=== PATIENT | male | born 1960 | race Caucasian/White ===

== ENCOUNTER 2019-07-04 17:20 | Emergency (ER) | payer SELFPAY ==
[2019-07-04 17:35] VITALS: BP 149/101
--- NOTE | 2019-07-04 18:13 | ED ---
Abdominal Pain/Male - HPI Summary HPI Summary: 58 yr old male with the complaint of right upper quadrant abdominal pain. He first noticed this about a month ago after he would eat. Over the past three days. The pain is worse after eating; he describes this as a dull ache that stays longer after eating now. No NV. He notices that his blood pressure has steadily gotten higher the past few days. Denies SOB, CP. Denies back pain. - History of Current Complaint Chief Complaint: UCAbdominalPain Stated Complaint: ABDOMINAL PAIN Time Seen by Provider: 07/04/19 17:51 Pain Intensity: 0 - Allergies/Home Medications Allergies/Adverse Reactions: Allergies Allergy/AdvReac Type Severity Reaction Status Date / Time Pork/Porcine Containing Allergy Severe wheeze Verified 07/04/19 17:36 Products chocolate flavor Allergy wheeze Verified 07/04/19 17:36 BRAZIL NUTS Allergy Intermediate See Comment Uncoded 07/04/19 17:36 NUTS Allergy Intermediate See Comment Uncoded 07/04/19 17:36 PMH/Surg Hx/FS Hx/Imm Hx Respiratory History: Reports: Other Respiratory Problems/Disorders - DEVIATED SEPTUM,SINUSITIS Sensory History: Reports: Hx Contacts or Glasses Denies: Hx Hearing Aid Opthamlomology History: Reports: Hx Contacts or Glasses - Surgical History Surgery Procedure, Year, and Place: SEPTIC ARTHRITIS LEFT HIP AT 9 YEARS OLD, INFECTION [place] SURGERY OPENED JOINT TO DRAIN Hx Anesthesia Reactions: No Infectious Disease History: No Infectious Disease History: Denies: Traveled Outside the [place] in Last 30 Days - Family History Known Family History: Positive: None - Social History Occupation: Retired Alcohol Use: None Substance Use Type: Reports: None Smoking Status (MU): Never Smoked Tobacco Review of Systems Constitutional: Negative Positive: Abdominal Pain All Other Systems Reviewed And Are Negative: Yes Physical Exam Triage Information Reviewed: Yes Vital Signs On Initial Exam: Initial Vitals Temp Pulse Resp BP Pulse Ox 99 F 76 16 149/101 100 07/04/19 17:25 07/04/19 17:25 07/04/19 17:25 07/04/19 17:25 07/04/19 17:25 Vital Signs Reviewed: Yes Appearance: Positive: Well-Appearing, No Pain Distress Skin: Positive: Warm, Skin Color Reflects Adequate Perfusion Head/Face: Positive: Normal Head/Face Inspection Eyes: Positive: EOMI, TONE ENT: Positive: Normal ENT inspection Neck: Positive: Nontender Respiratory/Lung Sounds: Positive: Clear to Auscultation, Breath Sounds Present Cardiovascular: Positive: RRR. Negative: Murmur Abdomen Description: Positive: Nontender, Soft. Negative: Distended Musculoskeletal: Positive: Strength/ROM Intact Neurological: Positive: Sensory/Motor Intact, Alert, Oriented to Person Place, Time, CN Intact II-III Psychiatric: Positive: Normal Diagnostics - Vital Signs Vital Signs Temp Pulse Resp BP Pulse Ox 07/04/19 17:25 99 F 76 16 149/101 100 - Laboratory Lab Statement: Any lab studies that have been ordered have been reviewed, and results considered in the medical decision making process. Abdominal Pain Male Course/Dx - Course Course Of Treatment: 58 yr old with hypertension and right upper abdominal pain. He signed out AMA refusing to go to the ER for further work up. - Diagnoses Provider Diagnoses: Right upper quadrant abdominal pain, Hypertension Discharge - Sign-Out/Discharge Documenting (check all that apply): Patient Departure All imaging exams completed and their final reports reviewed: No Studies - Discharge Plan Condition: Good Disposition: AGAINST MEDICAL ADVICE Referrals: No Primary Care Phys,NOPCP [Primary Care Provider] - - Billing Disposition and Condition Condition: GOOD Disposition: Against Medical Advice
== END 2019-07-04 18:15 | disposition left against medical advice (07) ==
LOC: UCEAST 17:20
DX: R10.11 Right upper quadrant pain (principal); I10 Essential (primary) hypertension
CPT/HCPCS: 99202; G0463

== ENCOUNTER 2019-12-29 19:53 | Emergency (ER) | payer BC ==
[2019-12-29 21:53] LABS: ABS Eosinophils 0.4 10^3/ul (0-0.6); ABS Lymphocytes 1.4 10^3/ul (1.0-4.8); ABS Monocytes 0.6 10^3/ul (0-0.8); ABS Neutrophils 7.4 10^3/ul (1.5-7.7); Eosinophil % 3.7 %; Hematocrit 44 % (42-52); Hemoglobin 15.5 g/dL (14.0-18.0); Lymphocyte % 14.6 %; Mean Corpuscular HGB Conc 35 g/dL (31-36); Mean Corpuscular Hemoglobin 31 pg (27-31); Mean Corpuscular Volume 88 fL (80-94); Mean Platelet Volume 8.3 fL (7.4-10.4); Platelet Count 195 10^3/uL (150-450); Red Blood Count 5.01 10^6 /uL (4.18-5.48); Red Cell Distribution Width 14 % (10-15); White Blood Count 9.9 10^3/uL (3.5-10.8)
[2019-12-29 21:56] LABS: INR 1.02 (0.82-1.09)
[2019-12-29 22:05] LABS: Albumin 4.5 g/dL (3.2-5.2); Albumin/Globulin Ratio 1.7 (1-3); BUN/Creatinine Ratio 25.5 (8-20); Calcium 9.6 mg/dL (8.6-10.3); EGFR African American 94.4 (>60); Globulin 2.7 g/dL (2-4); Potassium 3.8 mmol/L (3.5-5.0); Total Bilirubin 1.2 mg/dL (0.2-1.0); Total Protein 7.2 g/dL (6.4-8.9)
[2019-12-29 22:17] VITALS: BP 132/84
--- NOTE | 2019-12-29 22:35 | ED ---
Complex/Multi-Sys Presentation - HPI Summary HPI Summary: Patient is a 59 y/o M presenting to [facility] with complaints of left shoulder pain , right upper molar pain, blurred vision, elevated BP and rhinorrhea. He states that he was sitting at home earlier today watching golf when he had onset of blurred vision at the center of his vision. No black spots noted. He states that this episode lasted around 5 minutes and then resolved. BP at home was measured to be 175/98. No previous similar episodes noted. Patient notes that he had an episode of right upper molar pain yesterday and nasal discharge for the past week. He also reports that he had an intermittent episode of left shoulder pain around 3-4 weeks ago. No chest pain noted, but the patient is concerned for "silent heart attack". Patient is on 50 mg Losartan for HTN but no Hx of [place], HLD or diabetes noted. He notes that he exercises regularly and believes that this was his first EKG. No changes in baseline activity noted. No FMHx of cardiac disease reported. Home medications and allergies are reviewed. - History Of Current Complaint Chief Complaint: EDHypertension Time Seen by Provider: 12/29/19 21:28 Hx Obtained From: Patient Onset/Duration: Resolved Timing: Intermittent, Lasting: Location: Pain At: - left shoulder, right upper molar Associated Signs And Symptoms: Positive: Other - positive - left shoulder pain, right upper molar pain, blurred vision, elevated BP and rhinorrhea. Negative: Chest Pain - Allergies/Home Medications Allergies/Adverse Reactions: Allergies Allergy/AdvReac Type Severity Reaction Status Date / Time Pork/Porcine Containing Allergy Severe wheeze Verified 12/29/19 22:00 Products chocolate flavor Allergy wheeze Verified 12/29/19 22:00 BRAZIL NUTS Allergy Intermediate See Comment Uncoded 12/29/19 22:00 NUTS Allergy Intermediate See Comment Uncoded 12/29/19 22:00 Home Medications: Home Medications Losartan TAB* [Cozaar TAB*] 50 mg PO DAILY 12/29/19 [History Confirmed 12/29/19] PMH/Surg Hx/FS Hx/Imm Hx Respiratory History: Reports: Other Respiratory Problems/Disorders - DEVIATED SEPTUM,SINUSITIS Sensory History: Reports: Hx Contacts or Glasses Denies: Hx Hearing Aid Opthamlomology History: Reports: Hx Contacts or Glasses - Surgical History Surgery Procedure, Year, and Place: SEPTIC ARTHRITIS LEFT HIP AT 9 YEARS OLD, INFECTION [place] SURGERY OPENED JOINT TO DRAIN Hx Anesthesia Reactions: No Infectious Disease History: No Infectious Disease History: Denies: Traveled Outside the [place] in Last 30 Days - Family History Known Family History: Negative: Cardiac Disease - Social History Alcohol Use: None Substance Use Type: Reports: None Smoking Status (MU): Never Smoked Tobacco Review of Systems Positive: Blurred Vision Positive: Dental Pain, Nasal Discharge Cardiovascular: Other - positive - elevated BP Negative: Chest Pain Musculoskeletal: Other - positive - left shoulder pain All Other Systems Reviewed And Are Negative: Yes Physical Exam - Summary Physical Exam Summary: Appearance: Well-appearing, Well-nourished, lying in bed comfortably Skin: Warm, dry, no obvious rash Eyes: sclera anicteric, no conjunctival pallor ENT: mucous membranes moist, pharynx appears normal Neck: Supple, nontender Respiratory: Clear to auscultation, no signs of respiratory distress Cardiovascular: Normal S1, S2. No murmurs. Normal distal pulses in tibial and radial bilaterally. Abdomen: Soft, nontender, normal active bowel sounds present Musculoskeletal: Normal, Strength/ROM Intact Neurological: A&Ox3, awake and alert, mentation is normal, speech is fluent and appropriate Psychiatric: affect is normal, does not appear anxious or depressed Triage Information Reviewed: Yes Vital Signs On Initial Exam: Initial Vitals Temp Pulse Resp BP Pulse Ox 98.2 F 82 15 143/87 100 12/29/19 20:06 12/29/19 20:06 12/29/19 20:06 12/29/19 20:06 12/29/19 20:06 Vital Signs Reviewed: Yes Procedures - Sedation Patient Received Moderate/Deep Sedation with Procedure: No Diagnostics - Vital Signs Vital Signs Temp Pulse Resp BP Pulse Ox 12/29/19 22:16 98.6 F 69 12 132/84 95 12/29/19 22:02 98.7 F 66 12 124/86 95 12/29/19 20:06 98.2 F 82 15 143/87 100 - Laboratory Lab Results: Lab Results 12/29/19 12/29/19 12/29/19 Range/Units 21:41 21:41 21:41 WBC 9.9 (3.5-10.8) 10^3/uL RBC 5.01 (4.18-5.48) 10^6 /uL Hgb 15.5 (14.0-18.0) g/dL Hct 44 (42-52) % MCV 88 (80-94) fL MCH 31 (27-31) pg MCHC 35 (31-36) g/dL RDW 14 (10-15) % Plt Count 195 (150-450) 10^3/uL MPV 8.3 (7.4-10.4) fL Neut % (Auto) 75.1 % Lymph % (Auto) 14.6 % [place] % (Auto) 6.1 % Eos % (Auto) 3.7 % Baso % (Auto) 0.5 % Absolute Neuts (auto) 7.4 (1.5-7.7) 10^3/ul Absolute Lymphs (auto) 1.4 (1.0-4.8) 10^3/ul Absolute Monos (auto) 0.6 (0-0.8) 10^3/ul Absolute Eos (auto) 0.4 (0-0.6) 10^3/ul Absolute Basos (auto) 0.0 (0-0.2) 10^3/ul Absolute Nucleated RBC 0.0 10^3/ul Nucleated RBC % 0.0 INR (Anticoag Therapy) 1.02 (0.82-1.09) Sodium 135 (135-145) mmol/L Potassium 3.8 (3.5-5.0) mmol/L Chloride 102 (101-111) mmol/L Carbon Dioxide 23 (22-32) mmol/L Anion Gap 10 (2-11) mmol/L BUN 25 H (6-24) mg/dL Creatinine 0.98 (0.67-1.17) mg/dL Est GFR ( Amer) 94.4 (>60) Est GFR (Non-Af Amer) 78.0 (>60) BUN/Creatinine Ratio 25.5 H (8-20) Glucose 110 H (70-100) mg/dL Calcium 9.6 (8.6-10.3) mg/dL Total Bilirubin 1.20 H (0.2-1.0) mg/dL AST 21 (13-39) U/L ALT 17 (7-52) U/L Alkaline Phosphatase 42 (34-104) U/L Troponin I 0.00 (<0.03) ng/mL Total Protein 7.2 (6.4-8.9) g/dL Albumin 4.5 (3.2-5.2) g/dL Globulin 2.7 (2-4) g/dL Albumin/Globulin Ratio 1.7 (1-3) Result Diagrams: 12/29/19 21:41 12/29/19 21:41 Lab Statement: Any lab studies that have been ordered have been reviewed, and results considered in the medical decision making process. - EKG 1954 Summary of EKG Findings: EKG showed NSR at 74 BPM, P waves, QRS complex, and T waves are within normal limits, T waves and intervals are normal, no ischemic changes, no STEMI. This is a normal EKG. ED physician has reviewed and interpreted this EKG. Complex Multi-Symp Course/Dx Course Of Treatment: Patient is a 59 y/o M presenting to [facility] with complaints of left shoulder pain, right upper molar pain, blurred vision, elevated BP and rhinorrhea. He states that he was sitting at home earlier today watching golf when he had onset of blurred vision at the center of his vision. No black spots noted. He states that this episode lasted around 5 minutes and then resolved. BP at home was measured to be 175/98. No previous similar episodes noted. Patient notes that he had an episode of right upper molar pain yesterday and nasal discharge for the past week. He also reports that he had an intermittent episode of left shoulder pain around 3-4 weeks ago. No chest pain noted, but the patient is concerned for "silent heart attack". Patient is on 50 mg Losartan for HTN but no Hx of [place], HLD or diabetes noted. He notes that he exercises regularly and believes that this was his first EKG. No changes in baseline activity noted. No FMHx of cardiac disease reported. Physical exam is unremarkable. EKG showed NSR at 74 BPM, P waves, QRS complex, and T waves are within normal limits, T waves and intervals are normal, no ischemic changes, no STEMI. This is a normal EKG. Bloodwork was obtained and within normal limits with exception of BUN 25, BUN/creatinine ratio of 25.5, glucose 110, total bilirubin 1.2. Trop was negative. 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 - Diagnoses Provider Diagnoses: Transient visual disturbance Discharge ED - Sign-Out/Discharge Documenting (check all that apply): Patient Departure - discharge - Discharge Plan Condition: Stable Disposition: HOME Patient Education Materials: Blurred Vision (ED) Referrals: Santi Anderson MD [Medical Doctor] - Vimal Colmenares MD [Medical Doctor] - Additional Instructions: I'm not sure what caused your transient visual disturbance, but I would recommend having an eye exam this week to go over this and see if it represents a potential problem. If you have your own eye doctor that's fine, I have also given you contact info for a couple of eye specialists in [place]. The screening tests we ran looking for signs of heart trouble came back negative , so I don't think you need to worry about that. - Billing Disposition and Condition Condition: STABLE Disposition: Home - Attestation Statements Document Initiated by Theo: Yes Documenting Scribe: JUAN JOSÉ DIANE Provider For Whom Theo is Documenting (Include Credential): YULIYA BORRERO MD Scribe Attestation: I, JUAN JOSÉ DIANE, scribed for YULIYA BORRERO MD on 01/02/20 at 1840. Scribe Documentation Reviewed: Yes Provider Attestation: The documentation as recorded by the JUAN JOSÉ gage accurately reflects the service I personally performed and the decisions made by me, YULIYA BORRERO MD Status of Scribe Document: Viewed
== END 2019-12-29 22:16 | disposition home or self-care (01) ==
LOC: ED 19:53
DX: H53.8 Other visual disturbances (principal); M25.512 Pain in left shoulder; R03.0 Elevated blood-pressure reading, without diagnosis of hypertension; K08.89 Other specified disorders of teeth and supporting structures; J34.89 Other specified disorders of nose and nasal sinuses; Z79.811 Long term (current) use of aromatase inhibitors
CPT/HCPCS: 36415; 80053; 84484; 85025; 85610; 93005; 99282

== ENCOUNTER 2020-03-10 16:06 | Emergency (ER) | payer BC ==
--- NOTE | 2020-03-10 16:54 | ED ---
Laceration/Wound HPI - HPI Summary HPI Summary: 59 y/o M presenting to [facility] c/o right upper lip lacerations, right lower lip abrasion, 2/10 lip and dental pain s/p bracket from at home weightlifting equipment breaking and hitting his face. He states he broke 2 teeth. Medications reviewed. Takes vitamin E and mild anticoagulant. Allergies noted. Tetanus updated about 2 or 3 years ago. - History of Current Complaint Stated Complaint: MOUTH INJURY PER Time Seen by Provider: 03/10/20 16:50 Hx Obtained From: Patient Onset/Duration: Lasting Minutes, Still Present Aggravating: Nothing Alleviating: Nothing Timing: Constant Current Severity: Mild Pain Intensity: 2 Pain Scale Used: 0-10 Numeric - Allergy/Home Medications Allergies/Adverse Reactions: Allergies Allergy/AdvReac Type Severity Reaction Status Date / Time Pork/Porcine Containing Allergy Severe wheeze Verified 12/29/19 22:00 Products chocolate flavor Allergy wheeze Verified 12/29/19 22:00 BRAZIL NUTS Allergy Intermediate See Comment Uncoded 12/29/19 22:00 NUTS Allergy Intermediate See Comment Uncoded 12/29/19 22:00 Home Medications: Home Medications Losartan TAB* [Cozaar TAB*] 50 mg PO DAILY 12/29/19 [History Confirmed 03/10/20] Chlorhexidine MW 0.12% 473ML* [Peridex Mouth Wash 0.12%*] 15 ml SWISH SPIT BID 10 Days #1 btl 03/10/20 [Rx] Melatonin 10 mg PO BEDTIME 03/10/20 [History Confirmed 03/10/20] Penicillin VK 500 MG TAB(NF) [Penicillin VK 500 mg Tab] 500 mg PO QID 7 Days # 28 tab 03/10/20 [Rx] PMH/Surg Hx/FS Hx/Imm Hx Respiratory History: Reports: Other Respiratory Problems/Disorders - DEVIATED SEPTUM,SINUSITIS Sensory History: Reports: Hx Contacts or Glasses Opthamlomology History: Reports: Hx Contacts or Glasses - Surgical History Surgical History: Yes Surgery Procedure, Year, and Place: SEPTIC ARTHRITIS LEFT HIP AT 9 YEARS OLD, INFECTION [place] SURGERY OPENED JOINT TO DRAIN Hx Anesthesia Reactions: No Infectious Disease History: No Infectious Disease History: Denies: Traveled Outside the [place] in Last 30 Days - Family History Known Family History: Negative: Cardiac Disease - Social History Alcohol Use: None Substance Use Type: Reports: None Hx Tobacco Use: No Smoking Status (MU): Never Smoked Tobacco Review of Systems Positive: Other - lip and dental pain Positive: Other - right upper lip lacerations, right lower lip abrasion All Other Systems Reviewed And Are Negative: Yes Physical Exam - Summary Physical Exam Summary: General: Well appearing, no distress HEENT: PERRL; 3-cm right upper lip laceration, abrasion to right lower lip; 0.5 cm laceration to lower R lip, right upper canine complete subluxation, R lower canine subluxation but still in place. No midface tenderness. No nasal tenderness. Cardiovascular: Skin is well perfused Pulmonary: No respiratory distress, no tachypnea Abdomen: Non-distended Skin: Warm, pink, dry MSK: No edema Psych: Normal affect Neuro: A&Ox3 Triage Information Reviewed: Yes Vital Signs On Initial Exam: Initial Vitals Temp Pulse Resp BP Pulse Ox 98.3 F 103 18 143/101 99 03/10/20 16:14 03/10/20 16:14 03/10/20 16:14 03/10/20 16:14 03/10/20 16:14 Vital Signs Reviewed: Yes Procedures - Procedure Summary Procedure Summary: splint: used small piece of metal from N95 mask, placed dermabond glue. Tolerated well. - Sedation Patient Received Moderate/Deep Sedation with Procedure: No - Laceration/Wound Repair 1 Location: Other - R upper lip Anesthesia: Lido Irrigated w/ Saline (ccs): 500 Closure: Single Layer Suture Type: Other - 5-O fast gut Number of Sutures: 5 2 Location: Other - R lower lip Irrigated w/ Saline (ccs): 500 Closure: Single Layer Suture Type: Other - 5-O fast gut Number of Sutures: 1 Diagnostics - Vital Signs Vital Signs Temp Pulse Resp BP Pulse Ox 03/10/20 16:14 98.3 F 103 18 143/101 99 - Laboratory Lab Statement: Any lab studies that have been ordered have been reviewed, and results considered in the medical decision making process. Laceration Repair Course/Dx - Course Course Of Treatment: 59 y/o male p/w facial trauma. - laceration repaired, placed splint to lower incisor. UTD tetanus. Given penicillin and peridex. Will follow up w dentist. - Clinical Impression Provider Diagnoses: Laceration, Dental trauma - Critical Care Time Critical Care Statement: Critical care time is provided exclusive of any time spent performing procedures. Discharge ED - Sign-Out/Discharge Documenting (check all that apply): Patient Departure - Discharge Plan Condition: Stable Disposition: HOME Prescriptions: Chlorhexidine MW 0.12% 473ML* [Peridex Mouth Wash 0.12%*] 15 ml SWISH SPIT BID 10 Days #1 btl Penicillin VK 500 MG TAB(NF) [Penicillin VK 500 mg Tab] 500 mg PO QID 7 Days # 28 tab Patient Education Materials: Laceration (ED), Acute Dental Trauma (ED) Referrals: Ihsan Don MD [Primary Care Provider] - Additional Instructions: You received sutures (stitches) today. These will dissolve on their own. Please follow up with your dentist regarding her tooth as it may need to be permanently fixed. If the dental splint falls off, your tooth may also fall off. Please keep the area dry and clean. Take penicillin daily and use the peridex mouth wash. Eat a soft diet. Return to the emergency department or seek medical attention for drainage, redness to the area, increased pain around the laceration. Once the wound is healed, you can apply sunscreen to help with scar prevention. - Billing Disposition and Condition Condition: STABLE Disposition: Home - Attestation Statements Document Initiated by Theo: Yes Documenting Scribe: Maki Barnes Provider For Whom Theo is Documenting (Include Credential): Zoltan Brock MD Scribe Attestation: Maki Kauffman, scribed for Zoltan Brock MD on 03/10/20 at 1817. Scribe Documentation Reviewed: Yes Provider Attestation: The documentation as recorded by the aMki gage accurately reflects the service I personally performed and the decisions made by , Zoltan Brock MD Status of Scribfaraz Document: Viewed
[2020-03-10 17:57] VITALS: BP 132/93
== END 2020-03-10 17:56 | disposition home or self-care (01) ==
LOC: ED 16:06
DX: S01.511A Laceration without foreign body of lip, initial encounter (principal); W22.8XXA Striking against or struck by other objects, initial encounter; Y93.B3 Activity, free weights; Y92.9 Unspecified place or not applicable; Z79.899 Other long term (current) drug therapy
CPT/HCPCS: 12001; 12011; 99282

== ENCOUNTER 2024-02-21 06:56 | Observation (INO) ==
[2024-02-21] MEDS ORDERED: Famotidine IV 10 MG/ML 2 ml VIAL (20 mg) ONE (07:51)
[2024-02-21] MEDS ORDERED: cefTRIAXone 2 gm/50 mL D5W 2 GM/50 ML BAG IV ONE (07:51)
[2024-02-21] MEDS ORDERED: Midazolam 2 mg/2 ml VIAL 1 mg/ml 2 ml VIAL (2 mg) ONE (07:57)
[2024-02-21] MEDS ORDERED: Lidocaine 2% PF 5 ML VIAL ONE (07:58)
[2024-02-21] MEDS ORDERED: fentaNYL 100 mcg/2 ml 50 MCG/ML VIAL ONE ×2 (07:58→10:31)
[2024-02-21] MEDS: Buffered Lidocaine 1% SYRIN 1 ml INTRADERM ONE (08:01)
[2024-02-21] MEDS: Famotidine IV 10 MG/ML 2 ml VIAL (20 mg) IV ONE (08:01)
[2024-02-21] MEDS: Lactated Ringers 1000 ml BAG 1,000 ML IV SCH (08:02)
[2024-02-21] MEDS ORDERED: Propofol 0 MG/0 ML BTL ONE (08:05)
[2024-02-21 08:13] LABS: Rapid COVID-19 Molecular Undetected (Undetected)
[2024-02-21] MEDS ORDERED: fentaNYL 100 mcg/2 ml 50 MCG/ML VIAL IV PRN (08:38)
[2024-02-21] MEDS ORDERED: Naloxone 0.4 mg VIAL 0.4 mg/ml 1 ml VIAL IV PRN (08:38)
[2024-02-21] MEDS ORDERED: Dexamethasone IV 4 MG/ML VIAL 1 ml VIAL ONE (10:00)
[2024-02-21] MEDS ORDERED: Furosemide 20 mg/2 ml IV VIAL ONE ×2 (10:00→12:57)
[2024-02-21] MEDS ORDERED: Ondansetron 4 mg VIAL 2 MG/ML 2 ml VIAL ONE (10:00)
[2024-02-21] MEDS ORDERED: Acetaminophen IV 1 GM/100ML 1,000 MG/100 ML BAG IV ONE (12:50)
[2024-02-21] MEDS ORDERED: oxyCODONE/Acetamin 5/325 mg TAB PO PRN (13:30)
[2024-02-21] MEDS: Gentamicin ADULT 160 MG in NS 0.9% 100 ml BAG 100 ML IVPB ONE (14:03)
[2024-02-21] MEDS: LACTATED RINGERS 1000 ML BAG IV SCH (14:14)
[2024-02-21 15:13] LABS: Calcium 8.7 mg/dL (8.6-10.3); Creatinine, Serum 1.23 mg/dL (0.67-1.17); Potassium 3.8 mmol/L (3.5-5.0); eGFR CKD-EPI 65.6 (>60)
[2024-02-21] MEDS: Furosemide 20 mg/2 ml IV VIAL IV ONE (18:55)
[2024-02-21] MEDS: Sulfamethox/Trimethoprim SS TAB 400/80 mg PO SCH (21:54)
[2024-02-22 12:12] LABS: Hematocrit 37.9 % (38-53); Hemoglobin 13.2 g/dL (13.2-16.3); Mean Corpuscular Hemoglobin 30.5 pg (27-33); Mean Corpuscular Hgb Conc 34.7 g/dL (31-36); Mean Corpuscular Volume 87.7 fL (80-97); Mean Platelet Volume 8.2 fL (7.5-11.2); Platelet Count 175 10^3/uL (150-450); Red Blood Count 4.32 10^6/uL (4.06-5.63); Red Cell Distribution Width 13.5 % (12-17); White Blood Count 11.7 10^3/uL (3.6-10.2)
[2024-02-22] MEDS: cefTRIAXone 1 gm/50 mL D5W 1 GM/50 ML BAG IV SCH (12:51)
[2024-02-22 14:46] LABS: Calcium 8.6 mg/dL (8.6-10.3); Creatinine, Serum 1.1 mg/dL (0.67-1.17); Potassium 3.5 mmol/L (3.5-5.0)
[2024-02-22 18:42] LABS: Hematocrit 38.4 % (38-53); Hemoglobin 13.1 g/dL (13.2-16.3)
[2024-02-22 18:46] LABS: INR 1.04 (0.83-1.13)
[2024-02-22] MEDS ORDERED: Ondansetron 4 mg VIAL 2 MG/ML 2 ml VIAL IV PRN (19:41)
[2024-02-22] MEDS ORDERED: fentaNYL 100 mcg/2 ml 50 MCG/ML VIAL IV PRN (19:41)
[2024-02-22] MEDS ORDERED: Naloxone 0.4 mg VIAL 0.4 mg/ml 1 ml VIAL IV PRN (19:41)
[2024-02-22] MEDS ORDERED: Phenylephrine IV 10 MG/ML 1 ml VIAL ONE (21:03)
[2024-02-22] MEDS ORDERED: Bupivacaine-MPF SPINAL 7.5 MG/ML - 2ML AMP ONE (21:18)
[2024-02-23] MEDS: Lidocaine 2% JELLY 6 ML Topical TOPICAL PRN (03:40)
[2024-02-23] MEDS: NS 0.9% 1,000 ML IV SCH (05:40)
[2024-02-23 08:24] LABS: ABS Basophils 0.1 10^3/uL (0.0-0.1); ABS Eosinophils 0.4 10^3/uL (0.0-0.5); ABS Lymphocytes 3.2 10^3/uL (1.0-4.8); ABS Monocytes 0.9 10^3/uL (0.0-1.1); ABS Neutrophils 7.5 10^3/uL (1.5-7.6); Eosinophil % 2.9 %; Hemoglobin 10.8 g/dL (13.2-16.3); Lymphocyte % 26.9 %; Mean Corpuscular Hemoglobin 30.7 pg (27-33); Mean Corpuscular Hgb Conc 34.9 g/dL (31-36); Mean Corpuscular Volume 87.9 fL (80-97); Mean Platelet Volume 8.2 fL (7.5-11.2); Platelet Count 158 10^3/uL (150-450); Red Blood Count 3.53 10^6/uL (4.06-5.63); Red Cell Distribution Width 13.7 % (12-17); White Blood Count 12.1 10^3/uL (3.6-10.2)
[2024-02-23] MEDS: cefTRIAXone 1 gm/50 mL D5W 1 GM/50 ML BAG IV ONE (08:52)
[2024-02-23 08:56] LABS: Calcium 8.2 mg/dL (8.6-10.3); Creatinine, Serum 1.14 mg/dL (0.67-1.17); Potassium 4.2 mmol/L (3.5-5.0); eGFR CKD-EPI 71.8 (>60)
[2024-02-23 10:59] VITALS: BP 146/128
== END 2024-02-23 13:55 | disposition home or self-care (01) ==
LOC: SSU 06:56 → OR 06:56
PROVIDERS: ADMIT Urology; ATTEND Urology